=== PATIENT | male | born 1995 | race Caucasian/White ===

== ENCOUNTER 2020-08-08 07:41 | Emergency (ER) | payer OTHER ==
[~2020-08-08] VITALS: Ht 170.2 cm; Wt 81.6 kg
[2020-08-08 07:49] VITALS: Ht 170.2 cm; Wt 81.6 kg
[2020-08-08] MEDS ORDERED: LACOO OD (09:57)
[2020-08-08] MEDS ORDERED: ACYCLOVIR800 MG PO (09:57)
[2020-08-08] MEDS ORDERED: PREDNISONE20 MG PO (09:57)
[2020-08-08] MEDS ORDERED: AUGMENTIN 875-1 EACH PO (09:57)
[2020-08-08 10:17] VITALS: BP 188/62
== END 2020-08-08 10:17 | disposition home or self-care (01) ==
LOC: ED 07:41
DX: G51.0 Bell's palsy (principal)
CPT/HCPCS: 82962; J7512